=== PATIENT | male | born 1950 | race Caucasian/White ===

== ENCOUNTER 2018-04-10 08:02 | Day surgery (SDC) | payer MEDICARE, BC ==
[~2018-04-10] VITALS: Ht 172.7 cm; Wt 86.2 kg
[~2018-04-10 08:02] MED LIST: ALBU3IS INH; ALLO100 PO; ASPI325EC PO; ATOR20 PO; BUDE6HFA INH; CENTRUM COMPLE1 EACH PO; CHOL10002 PO; CLOT10 SS; CYAN500 PO; DICL75ER PO; DOCU100 PO; DONE10 PO; EZET10-20 PO; EZET10-40 PO; FENO67 PO; FLUC100 PO; FLUSAL2505; FORACORT PO; HYDACE10B PO; HYDCHL25 PO; HYDPAM25 PO; METF500C PO; METO50ER PO; MIRT30 PO; MORP30ER PO; Milk Of Ma400 MG/5 M PO; OMEP40CA12; OMEP40CA12 PO; ONDA4ODT MM; OXYACE5T PO; OXYC10ER PO; OXYC10TA19 PO; OXYC5; PRED10 PO; PREG75; QUININE SULFAT324 MG PO; SENN187 PO; TADA10TA PO; TIOT18 INH; VITB2 PO
== END 2018-04-10 22:43 | disposition home or self-care (01) ==
LOC: ORSCMMR 08:02 → ORD 09:00 → ORSCMMR 22:43
PROVIDERS: Internal Medicine Gastroenterology
PROC: 0DBN8ZX Excision of Sigmoid Colon, Via Natural or Artificial Opening Endoscopic, Diagnostic (ICD-10-PCS; principal; 2018-04-10 09:00)
PROC: 0DBP8ZX Excision of Rectum, Via Natural or Artificial Opening Endoscopic, Diagnostic (ICD-10-PCS; principal; 2018-04-10 09:00)
PROC: 0DB48ZX Excision of Esophagogastric Junction, Via Natural or Artificial Opening Endoscopic, Diagnostic (ICD-10-PCS; 2018-04-10 09:00)
PROC: 0DB68ZX Excision of Stomach, Via Natural or Artificial Opening Endoscopic, Diagnostic (ICD-10-PCS; 2018-04-10 09:00)
DX: K22.70 Barrett's esophagus without dysplasia (principal); D12.5 Benign neoplasm of sigmoid colon; K62.1 Rectal polyp; K57.30 Diverticulosis of large intestine without perforation or abscess without bleeding; K64.8 Other hemorrhoids; Z12.11 Encounter for screening for malignant neoplasm of colon; Z86.010 Personal history of colon polyps; Z86.73 Personal history of transient ischemic attack (TIA), and cerebral infarction without residual deficits; I10 Essential (primary) hypertension; E11.9 Type 2 diabetes mellitus without complications; J44.9 Chronic obstructive pulmonary disease, unspecified; G47.30 Sleep apnea, unspecified; Z87.891 Personal history of nicotine dependence; Z79.84 Long term (current) use of oral hypoglycemic drugs; Z79.899 Other long term (current) drug therapy; E78.00 Pure hypercholesterolemia, unspecified
CPT/HCPCS: 82947; 88305; 88342; J2250; J3010; J7030

== ENCOUNTER → 2020-02-09 | Outpatient (CLI) | payer MEDICARE, BC | END | disposition home or self-care (01) | LOC: LAB SHORT 11:25 → LAB EV 11:25 | DX: N39.0 Urinary tract infection, site not specified (principal) | CPT/HCPCS: 87086 ==